=== PATIENT | female | born 1945 | race American Indian/Alaskan Native ===

== ENCOUNTER 2020-05-18 11:22 | Emergency (ER) | payer MEDICARE, OTHER ==
[2020-05-18 12:08] LABS: Basophils % (Auto) 0.5 % (0.0-1.8); Eosinophils # (Auto) 0.3 K/mm3 (0.0-0.4); Eosinophils % (Auto) 4.7 % (0.0-4.3); Hematocrit 41.9 % (30.3-42.9); Hemoglobin 13.9 gm/dl (10.1-14.3); Lymphocytes # (Auto) 2.2 K/mm3 (1.2-5.4); Mean Corpuscular HGB Conc 33 % (30-34); Mean Corpuscular Volume 93 fl (79-97); Monocytes # (Auto) 0.2 K/mm3 (0.0-0.8); Monocytes % (Auto) 4.4 % (0.0-7.3); Platelet Count 252 K/mm3 (140-440); Red Blood Count 4.53 M/mm3 (3.65-5.03); Red Cell Distribution Width 13.7 % (13.2-15.2)
--- NOTE | 2020-05-18 12:08 | XRay Report ---
CHEST 2 VIEWS INDICATION / CLINICAL INFORMATION: Chest Pain. COMPARISON: None available. FINDINGS: SUPPORT DEVICES: None. HEART / MEDIASTINUM: No significant abnormality. LUNGS / PLEURA: No significant pulmonary or pleural abnormality. .No pneumothorax. ADDITIONAL FINDINGS: No significant additional findings. IMPRESSION: 1. No acute findings. Signer Name: Mat Jennings MD Signed: 05/18/2020 12:03 PM Workstation Name: [id number]
[2020-05-18 12:21] LABS: BUN/Creatinine Ratio 14; Blood Urea Nitrogen 14 mg/dL (7-17); Calcium 9.7 mg/dL (8.4-10.2); Hemolysis Index 5
[2020-05-18] MEDS ORDERED: traMADol 50 MG TAB PO ONE (13:58)
--- NOTE | 2020-05-18 15:28 | Emergency Department Report ---
ED Chest Pain HPI - General Chief Complaint: Chest Pain Stated Complaint: CP Time Seen by Provider: 05/18/20 13:53 Source: patient Mode of arrival: Ambulatory Limitations: No Limitations - History of Present Illness Initial Comments: Patient is a 75-year-old F [place] female with a past medical history of hypertension who is stating that she has some chest pain that started this morning. Patient states that this is been on and off issue actually for the last 3months that is occurring regularly. She states is been pretty frequent today and lasts up to 5 minutes at times. She states is a sharp pain in the center chest. States she has some very mild shortness of breath but not more than baseline. Patient has a history of COPD. She denies cough congestion fevers or chills. States there is no pain with movement. Patient has no exertional component patient states the pain is coming at random. She states that her doctor told her that the pain likely was muscular since it was reproducible and is reproducible today as well. Patient states she did have a CT in the past which was a silent CT. Severity scale (0 -10): 0 - Related Data Home Medications Medication Instructions Recorded Confirmed Last Taken Albuterol Sulfate [Ventolin HFA] 1 inhalation INHALATION PRN 11/15/13 05/24/15 05/24/15 Calcium Citrate/Vitamin D3 1 tab PO DAILY 11/15/13 05/24/15 05/23/15 [Calcium Cit-Vit D 250-200 Cplt] Denosumab [Prolia] 1 dose SC [id number] 11/15/13 05/24/15 12/13/14 amLODIPine 1 tab PO DAILY 11/15/13 05/24/15 05/24/15 hydroCHLOROthiazide 1 tab PO DAILY 11/15/13 05/24/15 05/23/15 [Hydrochlorothiazide] Budesoni/Formotero 160-4.5(Nf) 2 puff IH BID 05/15/15 05/24/15 05/24/15 [Symbicort 160-4.5 (Nf)] Cyclobenzaprine HCl [Flexeril 5 MG 5 mg PO BID 05/15/15 05/24/15 05/23/15 TAB] FLUoxetine HCL [PROzac] 40 mg PO HS 05/15/15 05/24/15 05/23/15 Meloxicam [Mobic] 7.5 mg PO QDAY 05/15/15 05/24/15 05/23/15 Mirtazapine [Remeron] 30 mg PO DAILY 05/15/15 05/24/15 05/23/15 Tiotropium [Spiriva] 18 mcg IH BID 05/15/15 05/24/15 05/24/15 Previous Rx's Medication Instructions Recorded Last Taken Type Pantoprazole [Protonix] 40 mg PO QDAY #30 tablet 05/18/20 Unknown Rx methOCARBAMOL [Robaxin TAB] 500 mg PO Q6H PRN #14 tablet 05/18/20 Unknown Rx Allergies Allergy/AdvReac Type Severity Reaction Status Date / Time No Known Allergies Allergy Verified 11/16/13 08:55 Heart Score - HEART Score History: Slightly suspicious EKG: Normal Age: > 65 Risk factors: > 3 risk factors or hx of atherosclerotic disease Troponin: < normal limit HEART Score: 4 ED Review of Systems ROS: Stated complaint: CP Other details as noted in HPI Comment: All other systems reviewed and negative ED Past Medical Hx - Past Medical History Hx Hypertension: Yes (OVER 30 YRS PCP) Hx Heart Attack/AMI: Yes Hx Renal Disease: No (hx kidney stones) Hx Arthritis: Yes Hx Seizures: No Hx Asthma: Yes Hx COPD: Yes (inhaler use this am. lungs clear) - Surgical History Hx Cholecystectomy: Yes (1999) Hx Appendectomy: Yes () - Social History Smoking Status: Former Smoker - Medications Home Medications: Home Medications Medication Instructions Recorded Confirmed Last Taken Type Albuterol Sulfate [Ventolin HFA] 1 inhalation INHALATION PRN 11/15/13 05/24/15 05/24/15 History Calcium Citrate/Vitamin D3 1 tab PO DAILY 11/15/13 05/24/15 05/23/15 History [Calcium Cit-Vit D 250-200 Cplt] Denosumab [Prolia] 1 dose SC [id number] 11/15/13 05/24/15 12/13/14 History amLODIPine 1 tab PO DAILY 11/15/13 05/24/15 05/24/15 History hydroCHLOROthiazide 1 tab PO DAILY 11/15/13 05/24/15 05/23/15 History [Hydrochlorothiazide] Budesoni/Formotero 160-4.5(Nf) 2 puff IH BID 0905/24/15 05/24/15 History [Symbicort 160-4.5 (Nf)] Cyclobenzaprine HCl [Flexeril 5 MG 5 mg PO BID 05/15/15 05/24/15 05/23/15 History TAB] FLUoxetine HCL [PROzac] 40 mg PO HS 05/15/15 05/24/15 05/23/15 History Meloxicam [Mobic] 7.5 mg PO QDAY 05/15/15 05/24/15 05/23/15 History Mirtazapine [Remeron] 30 mg PO DAILY 05/15/15 05/24/15 05/23/15 History Tiotropium [Spiriva] 18 mcg IH BID 05/15/15 05/24/15 05/24/15 History Pantoprazole [Protonix] 40 mg PO QDAY #30 tablet 05/18/20 Unknown Rx methOCARBAMOL [Robaxin TAB] 500 mg PO Q6H PRN #14 tablet 05/18/20 Unknown Rx ED Physical Exam - General Limitations: No Limitations General appearance: alert, in no apparent distress - Head Head exam: Present: atraumatic, normocephalic - Eye Eye exam: Present: normal appearance, PERRL, EOMI - ENT ENT exam: Present: mucous membranes moist - Neck Neck exam: Present: normal inspection - Respiratory Respiratory exam: Present: normal lung sounds bilaterally, chest wall tenderness. Absent: respiratory distress, wheezes, rales, rhonchi - Cardiovascular Cardiovascular Exam: Present: regular rate, normal rhythm, normal heart sounds. Absent: systolic murmur, diastolic murmur, rubs, gallop - GI/Abdominal GI/Abdominal exam: Present: soft, normal bowel sounds. Absent: distended, tenderness, guarding, rebound - Extremities Exam Extremities exam: Present: normal inspection - Back Exam Back exam: Present: normal inspection - Neurological Exam Neurological exam: Present: alert, oriented X3 - Psychiatric Psychiatric exam: Present: normal affect, normal mood - Skin Skin exam: Present: warm, dry, intact, normal color. Absent: rash ED Course Vital Signs 05/18/20 05/18/20 11:34 14:01 Temperature 98.7 F 98.8 F Pulse Rate 87 61 Respiratory 18 16 Rate Blood Pressure 133/78 Blood Pressure 128/75 [Right] O2 Sat by Pulse 97 100 Oximetry ED Medical Decision Making - Lab Data Result diagrams: 05/18/20 11:45 05/18/20 11:45 Lab Results 05/18/20 05/18/20 05/18/20 Range/Units 11:45 11:45 14:39 WBC 5.4 (4.5-11.0) K/mm3 RBC 4.53 (3.65-5.03) M/mm3 Hgb 13.9 (10.1-14.3) gm/dl Hct 41.9 (30.3-42.9) % MCV 93 (79-97) fl MCH 31 (28-32) pg MCHC 33 (30-34) % RDW 13.7 (13.2-15.2) % Plt Count 252 (140-440) K/mm3 Lymph % (Auto) 40.0 H (13.4-35.0) % [place] % (Auto) 4.4 (0.0-7.3) % Eos % (Auto) 4.7 H (0.0-4.3) % Baso % (Auto) 0.5 (0.0-1.8) % Lymph # (Auto) 2.2 (1.2-5.4) K/mm3 [place] # (Auto) 0.2 (0.0-0.8) K/mm3 Eos # (Auto) 0.3 (0.0-0.4) K/mm3 Baso # (Auto) 0.0 (0.0-0.1) K/mm3 Seg Neutrophils % 50.4 (40.0-70.0) % Seg Neutrophils # 2.7 (1.8-7.7) K/mm3 Sodium 141 (137-145) mmol/L Potassium 3.9 (3.6-5.0) mmol/L Chloride 101.4 (98-107) mmol/L Carbon Dioxide 28 (22-30) mmol/L Anion Gap 16 mmol/L BUN 14 (7-17) mg/dL Creatinine 1.0 (0.6-1.2) mg/dL Estimated GFR > 60 ml/min BUN/Creatinine Ratio 14 % Glucose 94 (65-100) mg/dL Calcium 9.7 (8.4-10.2) mg/dL Troponin T < 0.010 < 0.010 (0.00-0.029) ng/mL - EKG Data -: EKG Interpreted by Me - EKG Data 05/18/20 15:31 EKG shows sinus rhythm rate of 70. [place] is leftward. Intervals are normal. Q waves inferior leads as well as V3. No ST segment elevations or depressions are present. Some diffuse T wave flattening which is nonspecific. - Radiology Data CHEST 2 VIEWS INDICATION / CLINICAL INFORMATION: Chest Pain. COMPARISON: None available. FINDINGS: SUPPORT DEVICES: None. HEART / MEDIASTINUM: No significant abnormality. LUNGS / PLEURA: No significant pulmonary or pleural abnormality. .No pneumothorax. ADDITIONAL FINDINGS: No significant additional findings. IMPRESSION: 1. No acute findings. Signer Name: Mat Jennings MD Signed: 05/18/2020 12:03 PM Workstation Name: [id number] - Medical Decision Making Patient has had 2- troponins here in the emergency department. Chest x-ray is within normal limits and her EKG shows some old changes but nothing acute. Patient is symptoms been present for approximately 3 months off and on. Patient states this is not a daily thing but averages every other day. Feel comfortable sending the patient home to follow-up with her primary care physician. Patient given medication for symptomatic relief should be discharged home. Critical care attestation.: If time is entered above; I have spent that time in minutes in the direct care of this critically ill patient, excluding procedure time. ED Disposition Clinical Impression: Atypical chest pain Disposition: DC-01 TO HOME OR SELFCARE Is pt being admited?: No Does the pt Need Aspirin: No Condition: Stable Instructions: Chest Pain (ED) Additional Instructions: Please follow-up with your insecticide sprayer and primary care physician within the next week Time of Disposition: 15:37
[2020-05-18 15:46] VITALS: BP 136/81
== END 2020-05-18 15:46 | disposition home or self-care (01) ==
LOC: ED 11:22
DX: R07.89 Other chest pain (principal); R06.02 Shortness of breath; I25.2 Old myocardial infarction; I10 Essential (primary) hypertension; M19.91 Primary osteoarthritis, unspecified site; J44.9 Chronic obstructive pulmonary disease, unspecified; Z87.891 Personal history of nicotine dependence; Z90.49 Acquired absence of other specified parts of digestive tract; Z79.899 Other long term (current) drug therapy
CPT/HCPCS: 36415; 71046; 80048; 84484; 85025; 93005